=== PATIENT | female | born 1980 | race African-American/Black ===

== ENCOUNTER 2019-06-24 10:05 | Emergency (ER) | payer SELFPAY ==
--- NOTE | 2019-06-24 10:45 | ER Document Report ---
ED Medical Screen (RME) - General Chief Complaint: Toothache Stated Complaint: TOOTHACHE/JAW PAIN Time Seen by Provider: 06/24/19 10:43 Notes: 38-year-old female presents with tooth pain that started off and on side that is now spread to the other side. No gum swelling noted. No obvious dental abscess. Patient also complains of sore throat and bilateral ear pain. I have greeted and performed a rapid initial assessment of this patient. A comprehensive ED assessment and evaluation of the patient, analysis of test results and completion of the medical decision making process with be conducted by additional ED providers. - Related Data Allergies/Adverse Reactions: vancomycin Allergy (Verified 06/24/19 10:43)
[2019-06-24] MEDS ORDERED: AMOXICILLIN TR/POT CLAVULANATE 500-125 MG TAB PO ONE (13:40)
[2019-06-24] MEDS ORDERED: AMOXICILLIN TRIHYD 250 MG CAPSULE PO ONE (13:40)
[2019-06-24] MEDS ORDERED: ACETAMINOPHEN 325 MG TABLET PO ONE (13:40)
[2019-06-24] MEDS ORDERED: IBUPROFEN 600 MG TABLET PO ONE (13:40)
--- NOTE | 2019-06-24 13:44 | ER Document Report ---
HPI - HPI Time Seen by Provider: 06/24/19 10:43 Pain Level: 5 Context: Patient is a 38-year-old female who presents to the emergency department with a chief complaint of tooth pain and generalized jaw pain. Patient states that it started on the left side and then migrated to the right side. Patient went to the dentist a year ago. States that she has not followed up since then. Patient has had some body aches. - CONSTITUTIONAL Constitutional: REPORTS: Fever, Chills - EENT EENT: REPORTS: Sore Throat, Ear Pain - NEURO Neurology: DENIES: Headache, Weakness - GASTROINTESTINAL Gastrointestinal: DENIES: Abdominal Pain, Nausea, Patient vomiting - REPRODUCTIVE Reproductive: DENIES: : - DERM Skin Color: Normal Skin Problems: None Past Medical History - Social History Smoking Status: Former Smoker Chew tobacco use (# tins/day): No Frequency of alcohol use: None Drug Abuse: Marijuana Family History: Reviewed & Not Pertinent Patient has suicidal ideation: No Patient has homicidal ideation: No - Past Medical History Cardiac Medical History: Reports: Hx Hypertension Vertical Provider Document - CONSTITUTIONAL Agree With Documented VS: Yes Exam Limitations: No Limitations General Appearance: No Apparent Distress - INFECTION CONTROL TRAVEL OUTSIDE OF THE [place] IN LAST 30 DAYS: No - HEENT HEENT: Atraumatic, Normocephalic Notes: Tenderness noted to bilateral lower jaw. No tenderness upon mastoid process area. - NECK Neck: Normal Inspection - RESPIRATORY Respiratory: Breath Sounds Normal, No Respiratory Distress - CARDIOVASCULAR Cardiovascular: Regular Rate, Regular Rhythm Pulses: Normal: Radial - MUSCULOSKELETAL/EXTREMETIES Musculoskeletal/Extremeties: FROM - NEURO Level of Consciousness: Awake, Alert, Appropriate Motor/Sensory: No Motor Deficit, No Sensory Deficit - DERM Integumentary: Warm, Dry, No Rash Course - Re-evaluation Re-evalutation: 06/24/19 13:42 Patient's physical exam and history is most consistent with a infected tooth. Patient is able to swallow, no facial swelling noted, airway is patent, vital signs are normal. I do not suspect Alen's angina, peritonsilar abscess, or airway obstruction. The patient will be started on oral antibiotics. I have given the patient education on their antibiotics. Patient was given instructions to follow-up with a dentist this week. Patient also has a mildly injected left tympanic membrane. She will be started on Augmentin. Return precautions were given. Verbal discharge instructions were given. Patient verbalized understanding. Patient is stable for discharge. - Vital Signs Vital signs: Temp Pulse Resp BP Pulse Ox 98.9 F 85 18 174/111 H 99 06/24/19 10:43 06/24/19 10:43 06/24/19 10:43 06/24/19 10:43 06/24/19 10:43 Discharge - Discharge Clinical Impression: Mouth pain, Jaw pain, Tooth ache Condition: Stable Disposition: HOME, SELF-CARE Instructions: Toothache (OM) Additional Instructions: You have been seen in the emergency department for a toothache. You may take ibuprofen 600 mg and Tylenol 1000 mg every 6 hours as needed for the pain. You have also been prescribed antibiotics. Please take the antibiotics as prescribed, even if you start to feel better. If you develop a fever greater than 100.4 F, or have any symptoms that are worrisome to you, please return to the emergency department. Please follow-up with a dentist this week in regards to your visit. Prescriptions: Amoxicillin/Potassium Clav [Augmentin 875-125 Tablet] 1 tab PO BID #20 tab Referrals: [facility] [Provider Group] - Follow up as needed [facility] [Provider Group] - Follow up in 1 week [facility] [Provider Group] - Follow up as needed
[2019-06-24 13:59] VITALS: BP 170/108
== END 2019-06-24 14:06 | disposition home or self-care (01) ==
LOC: ER 10:05
DX: K08.89 Other specified disorders of teeth and supporting structures (principal); R68.84 Jaw pain; K13.79 Other lesions of oral mucosa; R50.9 Fever, unspecified; I10 Essential (primary) hypertension; J02.9 Acute pharyngitis, unspecified; H92.09 Otalgia, unspecified ear; F12.10 Cannabis abuse, uncomplicated; Z87.891 Personal history of nicotine dependence
CPT/HCPCS: 87070; 87880; 81025; J3490; 99282